=== PATIENT | male | born 1945 | race Caucasian/White ===

== ENCOUNTER → 2017-02-09 | Outpatient (CLI) | payer OTHER, MEDICARE | LOC: FIMAGING 08:50 | PROVIDERS: ATTEND Orthopaedic Surgery | DX: Z01.818 Encounter for other preprocedural examination (principal); M17.12 Unilateral primary osteoarthritis, left knee ==

== ENCOUNTER 2017-02-25 06:48 | Observation (INO) | payer OTHER, MEDICARE ==
[~2017-02-25 06:48] MED LIST: ROPIVACAINE 0.2% 80 MG, EPINEPHrine 0.2 MG, KETOROLAC TROMETHAMINE 30 MG in BAG 0 ML IU ONE; TRANEXAMIC ACID 3,000 MG in NS 50 ML IRR ONE
--- NOTE | 2017-02-25 07:14 | PDHPUP ---
History & Physical Update H&P update statement: This history and physical update is based on an assessment of the patient which was completed after admission or registration (within 24 hours), but prior to the surgery/procedure. H&P update: H&P reviewed & patient examined, no change in patient's condition since H&P completed
[2017-02-25] MEDS ORDERED: TRANEXAMIC ACID 3,000 MG/50 ML BAG IRR ONE (07:39)
[2017-02-25] MEDS ORDERED: VANCOMYCIN 1 GM VIAL ONE (07:39)
[2017-02-25] MEDS ORDERED: ceFAZolin 2 GM/SWFI 2 GM/20 ML SYR IVP ONE (07:42)
[2017-02-25] MEDS ORDERED: FAMOTIDINE 20 MG TAB PO ONE (07:42)
[2017-02-25] MEDS ORDERED: ACETAMINOPHEN 325 MG TAB PO ONE (07:42)
[2017-02-25] MEDS ORDERED: DEXAMETHASONE 4 MG/ML VIAL IVP ONE (07:42)
[2017-02-25] MEDS ORDERED: LR 1,000 ML IV ONE (07:43)
[2017-02-25] MEDS ORDERED: LIDOCAINE 1% 2 ML INJ ID PRN (07:43)
[2017-02-25] MEDS ORDERED: MIDAZOLAM 2 MG/2 ML VIAL ONE (09:19)
[2017-02-25] MEDS ORDERED: PROPOFOL/EMULSION 500 MG/50 ML BOTTLE IV ONE (09:24)
[2017-02-25] MEDS ORDERED: LIDOCAINE 2% 5 ML SDV ONE ×2 (09:24→10:09)
[2017-02-25] MEDS ORDERED: BUPIVACAINE/DEXTROSE 7.5MG/ML 2 ML SPINAL AMP SP ONE (09:24)
[2017-02-25] MEDS ORDERED: MIDAZOLAM 2 MG/2 ML VIAL IVP ONE (09:59)
[2017-02-25] MEDS ORDERED: LR 500 ML IV PRN (10:02)
[2017-02-25] MEDS ORDERED: HYDROmorphONE/DILAUDID 1 MG/ML INJ IVP PRN (10:02)
[2017-02-25] MEDS ORDERED: ALBUTEROL 3 ML DEYVIAL IH PRN (10:02)
[2017-02-25] MEDS ORDERED: NALOXONE HCL 0.4 MG/ML INJ IVP PRN (10:02)
[2017-02-25] MEDS ORDERED: fentaNYL 100 MCG/2 ML INJ IVP PRN (10:02)
[2017-02-25] MEDS ORDERED: ONDANSETRON 4 MG/2 ML VIAL IVP PRN ×2 (10:02→10:48)
--- NOTE | 2017-02-25 10:02 | PDANEPAE ---
ANE History of Present Illness knee arthroplasty ANE Past Medical History - Cardiovascular History Hx Hypertension: No Hx Arrhythmias: No Hx Chest Pain: No Hx Coronary Artery / Peripheral Vascular Disease: No Hx CHF / Valvular Disease: No Hx Palpitations: Yes Cardiovascular History Comment: PVCs - Pulmonary History Hx COPD: No Hx Asthma/Reactive Airway Disease: Yes Hx Recent Upper Respiratory Infection: No Hx Oxygen in Use at Home: No Hx Sleep Apnea: No Sleep Apnea Screening Result - Last Documented: Negative Pulmonary History Comment: exercise induced asthma - Neurologic History Hx Cerebrovascular Accident: No Hx Seizures: No Hx Dementia: No - Endocrine History Hx Diabetes: No - Renal History Hx Renal Disorders: No - Liver History Hx Hepatic Disorders: No - Neurological & Psychiatric Hx Hx Neurological and Psychiatric Disorders: Yes Neurological / Psychiatric History Comment: spinal stenosis c5/6, L4/5, c5/6 disc rupture - Cancer History Hx Cancer: Yes Cancer History Comment: prostate - Congenital Disorder History Hx Congenital Disorders: No - GI History Hx Gastrointestinal Disorders: Yes Gastrointestinal History Comment: barrets esophagus - Other Health History Other Health History: none - Chronic Pain History Chronic Pain: Yes (right knee, lower back) - Surgical History Prior Surgeries: prostatectomy. R renal stone removal. L nephrolithotomy. Bilateral meniscusectomy ANE Review of Systems Review of Systems: - Exercise capacity METS (RN): 5 METS ANE Patient History - Allergies Allergies/Adverse Reactions: Sulfa (Sulfonamide Antibiotics) Allergy (Intermediate, Verified 01/07/17 10:29) Tetanus Vaccines and Toxoid Allergy (Verified 02/25/17 07:45) tape Allergy (Uncoded 01/07/17 10:29) - Home Medications Home Medications: Esomeprazole Mag Trihydrate [Nexium] 12/31/16 [Last Taken Unknown] Famotidine [Pepcid 20 MG (*)] 12/31/16 [Last Taken Unknown] Olmesartan Medoxomil [Benicar 20 mg (*)] 12/31/16 [Last Taken Unknown] Rosuvastatin Calcium [Crestor 10mg (RX)] 12/31/16 [Last Taken 02/24/17] AZITHROMYCIN 1 g 02/25/17 [Last Taken 02/23/17] - NPO status NPO Since - Liquids (Date): 02/25/17 NPO Since - Liquids (Time): 03:00 NPO Since - Solids (Date): 02/24/17 NPO Since - Solids (Time): 18:30 - Anes Hx Anes Hx: no prior problems (urinary retention with SAB in past) - Smoking Hx Smoking Status: Never smoked - Family Anes Hx Family Hx Anesthesia Complications: none ANE Labs/Vital Signs - Vital Signs Blood Pressure: 139/94 Heart Rate: 78 Respiratory Rate: 16 O2 Sat (%): 93 Height: 173.99 cm Weight: 89.358 kg ANE Physical Exam - Airway Mallampati Score: Class 2 Mouth exam: normal dental/mouth exam - Pulmonary Pulmonary: no respiratory distress - Cardiovascular Cardiovascular: regular rate and rhythym - ASA Status ASA Status: II ANE Anesthesia Plan Anesthesia Plan: spinal Regional Anesthesia: adductor canal FNB
[2017-02-25] MEDS ORDERED: ROPIVACAINE HCL 150 MG/30 ML INJ ONE (10:09)
[2017-02-25] MEDS ORDERED: METOCLOPRAMIDE 10 MG/2 ML VIAL IVP PRN (10:48)
[2017-02-25] MEDS ORDERED: POLYETHYLENE GLYCOL 3350 17 GM PKT PO PRN (10:48)
[2017-02-25] MEDS ORDERED: LACTULOSE 20 GM/30 ML UDCUP PO PRN (10:48)
[2017-02-25] MEDS ORDERED: MAGNESIUM HYDROXIDE 30 ML UDCUP PO PRN (10:48)
[2017-02-25] MEDS ORDERED: PROMETHAZINE HCL 25 MG SUPPR PR PRN (10:48)
[2017-02-25] MEDS ORDERED: TEMAZEPAM 15 MG CAP PO PRN (10:48)
[2017-02-25] MEDS ORDERED: diphenhydrAMINE 25 MG CAP PO PRN (10:48)
[2017-02-25] MEDS ORDERED: DIPHENOXYLATE/ATROPINE LOMOTIL 1 TAB PO PRN (10:48)
[2017-02-25] MEDS ORDERED: oxyCODONE IR 5 MG TAB PO PRN (10:48)
[2017-02-25] MEDS ORDERED: BISACODYL 10 MG SUPP PR PRN (10:48)
[2017-02-25] MEDS ORDERED: PROMETHAZINE HCL 25 MG/ML INJ IVP PRN (10:48)
[2017-02-25] MEDS ORDERED: CYCLOBENZAPRINE 10 MG TAB PO PRN (10:48)
[2017-02-25] MEDS ORDERED: ONDANSETRON DISINTEGRATING 4 MG TAB PO PRN (10:48)
--- NOTE | 2017-02-25 10:48 | POSTOPPROG ---
Post Op Note Date of Operation: 02/25/17 Surgeon: Chelo Linder [employer] Manager: aleah linder Anesthesiologist: dr. reese Anesthesia: Spinal, Other (Specify) (adductor canal block) Pre-op Diagnosis: left knee OA Post-op Diagnosis: same Indication: left knee pain due to OA that failed conservative measures Procedure: L medial MPL Findings: severe knee OA and osteophytes Inf/Abcess present in the surg proc area at time of surgery?: No EBL: 50-100
[2017-02-25] MEDS ORDERED: NS 1,000 ML IV SCH (11:00)
--- NOTE | 2017-02-25 11:04 | POSTANESTH ---
Post Anesthetic Evaluation Cardiovascular Status: Normal, Stable Respiratory Status: Normal, Stable Level of Consciousness/Mental Status: Can Participate in Eval Pain Control: Adequate, Prn Tx Ordered Nausea/Vomiting Control: Adequate, Prn Tx Ordered Complications Possibly Related to Anesthesia: None Noted
[2017-02-25] MEDS: ACETAMINOPHEN 325 MG TAB PO SCH ×3 (12:01→23:53)
[2017-02-25] MEDS: ceFAZolin 2 GM/DEXTROSE 100 ML IV SCH (18:13)
[2017-02-25 19:31] VITALS: RESP 16
[2017-02-25] MEDS: ASPIRIN 325 MG TAB PO SCH (20:57)
[2017-02-25] MEDS ORDERED: OLMESARTAN MEDOXOMIL 20 MG TAB PO SCH (21:00)
[2017-02-25] MEDS: FAMOTIDINE 20 MG TAB PO SCH (21:00)
[2017-02-25] MEDS ORDERED: ROSUVASTATIN CALCIUM 10 MG TAB PO SCH (21:00)
[2017-02-25] MEDS: SENNOSIDES/DOCUSATE SODIUM TAB PO SCH (21:00)
[2017-02-26] MEDS: ceFAZolin 2 GM/DEXTROSE 100 ML IV SCH (01:52)
[2017-02-26 04:53] LABS: HEMOGLOBIN 14.8 g/dL (13.7-17.5)
[2017-02-26] MEDS: ACETAMINOPHEN 325 MG TAB PO SCH (06:13)
[2017-02-26 07:23] VITALS: BP 141/88; PULSE 57; TEMP 98.1; O2SAT 96
[2017-02-26] MEDS: ASPIRIN 325 MG TAB PO SCH (08:42)
[2017-02-26] MEDS: SENNOSIDES/DOCUSATE SODIUM TAB PO SCH (08:44)
[2017-02-26] MEDS: FAMOTIDINE 20 MG TAB PO SCH (08:45)
[2017-02-26] MEDS ORDERED: PANTOPRAZOLE SODIUM 40 MG TAB PO SCH (09:00)
--- NOTE | 2017-02-26 10:23 | ASMTCMCOM ---
CM Note CM Note Notes: Anticipate pt will have no DC needs. Date Signed: 02/26/2017 10:22 AM Electronically Signed By:Estephania Montes De Oca LCSW
--- NOTE | 2017-02-26 11:22 | GOP ---
[f rep st] OPERATIVE REPORT DATE OF OPERATION: 02/25/2018 SURGEON: Ly Meyer MD PENSION AGENT: JACQUES Rg ANESTHESIA: Spinal. PREOPERATIVE DIAGNOSIS: Left knee osteoarthritis. POSTOPERATIVE DIAGNOSIS: Left knee osteoarthritis. PROCEDURE PERFORMED: medial compartment replacement with computer navigation and robotic assist FINDINGS: ESTIMATED BLOOD LOSS: 30cc. INDICATIONS: This is a 72-year-old male with progressive pain of the left knee unresponsive to conservative care. Risks and benefits of surgical intervention were explained in detail. DESCRIPTION OF PROCEDURE: The patient was brought to the operating room and placed on the table in supine position. Spinal anesthesia was induced without difficulty. A pneumatic tourniquet was applied about the left proximal thigh and the leg was prepped and draped in sterile fashion. Attention was turned first to the distal aspect of the left femur. At 3 cm proximal to the lateral rise of the femur, 2 percutaneous half pins were placed for fixation of the femoral array. In a similar fashion, 2 pins were placed anterolateral on the tibia for fixation of the tibial array. External land marking and registration of the hip center was performed without difficulty. After exsanguination by elevation, the tourniquet was inflated to 275 mmHg. Incision was made from the tibial tuberosity to the superior pole of the patella. Dissection was carried out through the subcutaneous tissue to the deep fascia using Bovie electrocautery for hemostasis. Medial parapatellar arthrotomy was carried out to the superior pole of the patella. The medial collateral ligament was elevated and the infrapatellar fat pad was resected. Internal femoral and tibial registration was carried out without difficulty and the femoral and tibial checkpoints were placed and verified for accuracy. Attention was turned to the femur. The foot print for the size 5 femoral component was cut with the 6 mm bur using the [employer] robotic system and verified for accuracy against the CT based plan. The hole was cut for the femoral post. In a similar fashion, the 6 mm bur was used to cut the foot print for the size 6 tibial component using the [employer] system and verified for accuracy against the CT based plan. Attention was turned to the posterior aspect of the knee and remnants of the medial meniscus were excised. The posterior capsule was injected with ropivacaine, epinephrine and Toradol. Trial reduction was carried out and there was excellent range of motion, alignment and stability using the size 5 femoral component and the size 6 x 8 mm tibial component. All trials were then removed. The joint was thoroughly irrigated and carefully dried. One package of cement and 1 gram of vancomycin were mixed in the vacuum mixer and placed on the fixation surfaces of all components. The components were implanted and all excess cement was thoroughly removed. Implant placement was verified against the CT view plan and found to be excellent. The tourniquet was deflated and all bleeders were coagulated. The wound was thoroughly irrigated and closed using interrupted sutures of 2-0 Vicryl for the joint capsule. The subcu was closed with 3-0 Vicryl and the skin with 4-0 Monocryl. Dermabond and Steri-Strips were applied, followed by a compressive dressing. The patient was then moved from the operating room to the recovery room in good condition, having tolerated the procedure well. PATHOLOGY: Severe medial compartment osteoarthritis. CASE CLASSIFICATION: Clean. /[id number]/MODL MTDD
--- NOTE | 2017-02-26 11:31 | SOAPPROG ---
SOAP Progress Note Assessment/Plan: Assessment: patient is doing well POD1 s/p L med partial knee arthroplasty 1) pain management: pain is well controlled on oral pain meds 2) VTE ppx: recommend aspirin daily. cont RORY desai and SCDs 3) d/c planning: d/c to home today once patient is released from PT Plan: 02/26/17 11:29 Subjective: Raghavendra is doing well today, denies SOB, chest pain and N/V. Objective: Vital Signs Temp Pulse Resp BP Pulse Ox 36.7 C 57 L 16 141/88 H 96 02/26/17 07:22 02/26/17 07:22 02/26/17 07:22 02/26/17 07:22 02/26/17 07:22 Laboratory Results 02/26/17 04:13 02/25/17 02/26/17 02/27/17 05:59 05:59 05:59 Intake Total 2450 Output Total 450 Balance 2000 LLE: incision dressing is clean and dry, NVI, +pf/df ICD10 Worksheet Patient Problems: Problems Problem Status Onset Primary localized osteoarthritis of left knee Acute
--- NOTE | 2017-02-26 12:32 | GDS ---
[f rep st] DISCHARGE SUMMARY ADMISSION DIAGNOSIS: Left knee osteoarthritis. DISCHARGE DIAGNOSIS: Left knee osteoarthritis. PROCEDURE: Left partial knee arthroplasty, medial compartment, robot assisted. VTE PROPHYLAXIS: Aspirin recommended for 3 weeks daily. BRIEF DESCRIPTION OF HOSPITAL STAY: Patient was admitted for an elective joint arthroplasty. The pa leslie tolerated the procedure well and has passed physical therapy. The patient was given appropriat e antibiotic prophylaxis and venous thromboembolism prophylaxis. The patient's pain was well control led on oral pain medication, patient was holding down food, and had urinated. Decision was made to d ischarge the patient. The patient was given post-operative prescriptions pre-operatively. PLAN: To follow up as scheduled with Dr. Meyer's office March 17 at 11 a.m. /[id number]/MODL
--- NOTE | 2017-02-26 14:15 | ASDISCHSUM ---
Discharge Information Plan Status: Medically Cleared to Leave: Discharge Date:02/26/2017 12:30 PM CM D/C Disposition: ADT D/C Disposition:Home, Routine, Self-Care Projected Discharge Date:02/26/2017 12:30 PM Transportation at D/C: Discharge Delay Reason: Follow-Up Date:02/26/2017 12:30 PM Discharge Slot: Final Diagnosis: Placement Information Patient Contact Information Contact Name:ALEX Relationship: Address:[address] [facility] Work Phone: City:[place] [facility] Phone: State/Zip Code:[place] [address] Email: Financial Information Financial Class: Primary Plan Desc:MEDICARE OUTPATIENT Primary Plan Number:[id number] Secondary Plan Desc:[employer]/MDR SUPPLEMENT Secondary Plan Number:[id number] Assessment Information [facility] CM Progress Note CM Note CM Note Notes: Anticipate pt will have no DC needs. Date Signed: 02/26/2017 10:22 AM Electronically Signed By:Estephania Montes De Oca LCSW Intervention Information Intervention Type:*LEEANN-Signed Date of Service:02/25/2017 12:36 PM Patient Type:Inpatient Staff Member:RAIMUNDO Stallings Susan Hours: Discipline: Severity: Comment:
== END 2017-02-26 12:30 | disposition home or self-care (01) ==
LOC: F3N 06:48 → INTOOBSV 06:48 → F3N 11:50
PROVIDERS: ADMIT Orthopaedic Surgery; ATTEND Orthopaedic Surgery
DX: M17.12 Unilateral primary osteoarthritis, left knee (principal); I49.3 Ventricular premature depolarization; J45.990 Exercise induced bronchospasm; Z85.46 Personal history of malignant neoplasm of prostate
CPT/HCPCS: 27446; 73560; 97161; 97165; C1713; C1776; G8978; G8979; G8980; G8987; G8988; G8989; J0171; J0690; J1100; J1885; J2250; J2704; J2795; J3370

== ENCOUNTER → 2017-10-18 | Outpatient (CLI) | payer OTHER, MEDICARE | LOC: BHFA 14:00 | PROVIDERS: ATTEND Internal Medicine Cardiovascular Disease | DX: R07.9 Chest pain, unspecified (principal); R00.2 Palpitations ==